=== PATIENT | male | born 1955 | race Caucasian/White ===

== ENCOUNTER 2024-06-16 10:46 | Outpatient (CLI) | payer MEDICARE, SELFPAY ==
[2024-06-19 02:15] LABS: Pancreatic Elastase, Fecal 516 (>200)
== END 2024-06-16 23:59 | disposition home or self-care (01) ==
LOC: LAB 10:47
PROVIDERS: PCP Nurse Practitioner Family; Visit Provider Internal Medicine Gastroenterology
DX: R14.0 Abdominal distension (gaseous) (principal); R15.2 Fecal urgency; R19.7 Diarrhea, unspecified
CPT/HCPCS: 82656

== ENCOUNTER 2024-07-03 12:44 | Day surgery (SDC) | payer MEDICARE, SELFPAY ==
[2024-07-03 13:10] VITALS: BMI 27.4
[2024-07-03] MEDS: LACTATED RINGERS 1000ML 1,000 ML 50 ML IV (13:13)
[2024-07-03 13:16] VITALS: BP 148/68; PULSE 67; RESP 20; TEMP 36.4; O2SAT 97
--- NOTE | 2024-07-03 13:48 | P.PNANES_ITS ---
[facility] Disclaimer: The information contained in this section may have been updated after the patient was seen, as this information can be updated by other users. Medical History Gassiness Night terrors, adult Asthma Surgical History H/O: knee surgery History of appendectomy Hx of cholecystectomy History of carpal tunnel surgery H/O wrist surgery History of prostate surgery Family History Sister Multiple myeloma Social History Smoking Status: Never smoker alcohol intake: former substance use type: denies use current occupational status: retired Travel in the last 8 weeks: Inside the [place] Have you lived/traveled outside US in past 30 days?: No Contact w/someone who lives/traveled outside US past 30 days?: No Exposure to someone with infectious disease in past 14 days?: No Do you have a fever (greater than 100.4 F or 38 C)?: No Have you tested positive for COVID-19: No Exposed to someone with COVID-19 in past 14 days?: No Do you have a sore throat?: No Do you have a cough?: No Do you have any weakness?: No Do you have any diarrhea?: No Are you experiencing any unusual bleeding?: No Do you have any muscle aches/pain?: No Do you have any abdominal pain?: No Are you experiencing loss of taste or smell?: No [facility] Anesthesia Checklist Patient Identification Patient Identification: Arm Band Structural Data Admitted From: Home Planned Operative Procedure/s: Colonoscopy Consent for Planned Operative Procedure(s) Verified: Yes Verified Documents: Surgical Consent and History and Physical NPO Status Verified Time NPO: 11:00 (Finished prep) Additional verifications Anesthesia Reactions: No Hx Blood Transfusions: No Blood Transfusion Reaction: No Airway Assessment Mallampati Score:: Class II C-Spine Mobility Assessed: Yes TMJ Mobility Assessed: Yes Dentition: Good Dentition Neurological Assessment Level of Consciousness: Awake, Alert and Appropriate Anesthesia Plan Anesthesia Risk discussed: Yes Anesthesia Plan: Verified ASA Class: II Anesthesia Type: MAC
--- NOTE | 2024-07-03 14:23 | EXP.HP ---
History of Present Illness *Admission Date: 07/03/24 *Reason for visit:: Diarrhea, abdominal cramps and bowel irregularity *History of present illness: Mr. Díaz is a 69-year-old gentleman who is here to reestablish GI care. The patient was last seen in our [place] office in December 2020 and at that time he had both fecal and urinary incontinence. He does have a prior history of cholecystectomy. His last colonoscopy was in April 2018 and he had a single polyp (mucosal prolapse polyp) which was removed. The patient returns today with alternating diarrhea with constipation. He also has noted some dark and bright red blood with his bowel movements. He has had moderate gassiness and bloating. He did have prostate reduction surgery 2 months ago and most of his symptoms have recurred subsequently. Prior to surgery, he did have routine abdominal films that showed high fecal burden/fecal retention. The patient does state that he will go 2 to 3 weeks with constipation and then develop significant gassiness, bloating and diarrhea with urgency. The patient did have his colonoscopy in April 2020 and at that time had grade 2 internal hemorrhoids that were banded x 3. He does feel that this is much like his prior hemorrhoidal bleeding. It was suggested that he begin cholestyramine because of his diarrhea and prior cholecystectomy. Since his prostate reduction surgery he has had lower extremity weakness and muscle issues and he is just now beginning to walk again. He has been told that he has pelvic floor dysfunction. He has noted some intermittent right lower quadrant abdominal pain especially when he becomes obstipated. The patient has had routine colonoscopies. He had a colonoscopy in February 2003 and had a single tubular adenoma removed. His colonoscopy in 2009 was normal. His colonoscopy in 2018 revealed only a mucosal prolapse polyp. [facility] Disclaimer: The information contained in this section may have been updated after the patient was seen, as this information can be updated by other users. Medical History Gassiness Night terrors, adult Asthma Surgical History H/O: knee surgery History of appendectomy Hx of cholecystectomy History of carpal tunnel surgery H/O wrist surgery History of prostate surgery Family History Sister Multiple myeloma Social History Smoking Status: Never smoker alcohol intake: former substance use type: denies use current occupational status: retired Travel in the last 8 weeks: Inside the [place] Have you lived/traveled outside [place] in past 30 days?: No Contact w/someone who lives/traveled outside [place] past 30 days?: No Exposure to someone with infectious disease in past 14 days?: No Do you have a fever (greater than 100.4 F or 38 C)?: No Have you tested positive for COVID-19: No Exposed to someone with COVID-19 in past 14 days?: No Do you have a sore throat?: No Do you have a cough?: No Do you have any weakness?: No Do you have any diarrhea?: No Are you experiencing any unusual bleeding?: No Do you have any muscle aches/pain?: No Do you have any abdominal pain?: No Are you experiencing loss of taste or smell?: No Other Medical History Have you received the Pneumonia Vaccine: Yes Review of Systems Review of Systems Review of systems (narrative): Negative *Cardiovascular Comments: Negative *Gastrointestinal Comments: Negative *Genitourinary Comments: Negative *Musculoskeletal Comments: Negative *Neurologic Comments: Negative Meds Home Medications and Allergies Home Medications ?Medication ?Instructions ?Recorded ?Confirmed ?Type albuterol sulfate 90 mcg/actuation 2 puff inhalation ONCE 06/13/24 07/03/24 History aerosol inhaler fluticasone 250 mcg-salmeterol 50 250 ea inhalation NEEDED PRN 06/13/24 07/03/24 History mcg/dose blistr powdr for Breathing Problems inhalation levocetirizine 5 mg tablet 5 mg PO DAILY 06/13/24 07/03/24 History montelukast 10 mg tablet 10 mg PO DAILY 06/13/24 07/03/24 History New Prescriptions to Start Prescriptions: Allergies Allergy/AdvReac Type Severity Reaction Status Date / Time No Known Allergies Allergy Verified 07/03/24 13:16 Exam Data for Last 24 hours Vital signs and Labs for Last 24 Hours: Temp Pulse Resp BP Pulse Ox O2 Del Method 97.5 F L 67 20 148/68 H 97 Room Air 07/03/24 13:16 07/03/24 13:16 07/03/24 13:16 07/03/24 13:16 07/03/24 13:16 07/03/24 13:16 I & O for Last 24 hours: Intake & Output 06/30/24 07/01/24 07/02/24 07/03/24 23:59 23:59 23:59 23:59 Weight 197 lb *Routine HEENT Exam Head: Present normocephalic Eye: Present EOMI and PERRL ENT: Present mucous membranes moist *Routine Neck Exam Neck: Present supple *Routine Respiratory Exam Respiratory: Present CTA bilaterally *Routine Cardiovascular Exam Cardiovascular: Present RRR *Routine Abdominal Exam Abdominal: Present soft and normoactive bowel sounds; Absent tenderness *Routine Rectal Exam Rectal:: deferred *Routine Genitalia Exam Genitalia:: deferred *Routine Extremities Exam Extremities: Absent cyanosis, clubbing or edema *Routine Skin Exam Skin: Present warm; Absent rash *Routine Neurological Exam Neurological: Present alert and oriented X3 Assessment and Plan *Assessment and plan (1) Diarrhea: Status: Acute Category: Medical Code(s): R19.7 - Diarrhea, unspecified (2) Fecal urgency: Status: Acute Category: Medical Code(s): R15.2 - Fecal urgency (3) Bright red rectal bleeding: Status: Acute Category: Medical Code(s): K62.5 - Hemorrhage of anus and rectum (4) Right lower quadrant abdominal pain: Status: Acute Category: Medical Code(s): R10.31 - Right lower quadrant pain (5) Gassiness: Status: Acute Category: Medical Code(s): R14.0 - Abdominal distension (gaseous) (6) Bloating: Status: Acute Category: Medical Code(s): R14.0 - Abdominal distension (gaseous) Plan A/P: 1. Diarrhea with fecal urgency, right lower quadrant pain, gassiness, bloating and rectal bleeding is the preprocedural diagnosis. The patient will be anesthetized/sedated using MAC sedation. The patient has been seen and examined. Cardiac and lung assessment prior to the examination is stable. Proceed with planned diagnostic colonoscopy.
[2024-07-03 14:29] VITALS: O2SAT 99
--- NOTE | 2024-07-03 14:34 | HMH.PROCNOTE ---
[facility] Procedure Note Date: 07/03/24 Time: 14:54 Procedure Note:: Colonoscopy Procedure Report: Colonoscopy with cold snare polypectomy Endoscopist: Kike Floyd II, MD Referring physician: Gail Sawant Date of Procedure: July 03, 2024 Equipment: Olympus 190 variable stiffness pediatric colonoscope Sedation: MAC sedation Indication: Mr. Díaz is a 69-year-old gentleman who is here for diagnostic colonoscopy. The patient was last seen in our [place] office in December 2020 and at that time he had both fecal and urinary incontinence. He does have a prior history of cholecystectomy. His last colonoscopy was in April 2018 and he had a single polyp (mucosal prolapse polyp) which was removed. The patient returned recently with alternating diarrhea with constipation. He also has noted some dark and bright red blood with his bowel movements. He has had moderate gassiness and bloating. He did have prostate reduction surgery 2 months ago and most of his symptoms have recurred subsequently. Prior to surgery, he did have routine abdominal films that showed high fecal burden/fecal retention. The patient does state that he will go 2 to 3 weeks with constipation and then develop significant gassiness, bloating and diarrhea with urgency. The patient did have his colonoscopy in April 2020 and at that time had grade 2 internal hemorrhoids that were banded x 3. He does feel that this is much like his prior hemorrhoidal bleeding. It was suggested that he begin cholestyramine because of his diarrhea and prior cholecystectomy. Since his prostate reduction surgery he has had lower extremity weakness and muscle issues and he is just now beginning to walk again. He has been told that he has pelvic floor dysfunction. He has noted some intermittent right lower quadrant abdominal pain especially when he becomes obstipated. The patient has had routine colonoscopies. He had a colonoscopy in February 2003 and had a single tubular adenoma removed. His colonoscopy in 2009 was normal. His colonoscopy in 2018 revealed only a mucosal prolapse polyp. In the office in late May, I did recommend that he resume the fiber bowel regimen (MiraLAX plus Konsyl mixed together). The patient is doing much better since reinitiation. Procedure: Prior to the procedure, a history and physical exam was performed, and patient's medications and allergies were reviewed. The risks, benefits and alternatives of the sedation and procedure were discussed with the patient. All questions were answered and informed consent was obtained. The patient was brought to the procedure room. Patient identification and proposed procedure were verified by the physician and the nurse. The patient was placed in a left lateral decubitus position and the scope was passed under direct vision. Throughout the procedure, the patient's blood pressure, pulse, and oxygen saturations were monitored continuously. The colonoscopy was accomplished without difficulty. The patient tolerated the procedure well. Findings: On digital rectal examination there was normal rectal tone. There were no external hemorrhoids. The prostate was moderately firm but symmetric without nodules. The colonoscope was introduced through the anal canal to the rectum and advanced to the cecum. The ileocecal valve and appendiceal orifice were identified. The scope was advanced a short distance into the ileum which appeared grossly normal. The scope was then withdrawn into the colon. There were 3 diminutive polyps (cecum x 1 (3 mm), ascending x 1 (4 mm) and sigmoid x 1 (5 mm)). All of these were removed via cold snare polypectomy. The remaining cecum, ascending and transverse colon and mucosa were grossly normal. There were scattered diverticuli throughout the descending and sigmoid colon (LEFT colon). The rectum itself was normal. Upon retroflexion within the rectum there were grade 2 internal hemorrhoids. The preparation was excellent throughout with [place] Preparation Score of 9. The cecal time was 12 minutes. Impression: 1. Diminutive colonic polyps x 3 2. Left-sided diverticulosis 3. Grade 2 internal hemorrhoids Plan: I will follow-up the polyp histology and recommend repeat surveillance colonoscopy again in 5 years based upon the pathology. I would continue the fiber bowel regimen (combined MiraLAX plus Konsyl) on a routine and daily basis.
[2024-07-03 15:00] VITALS: BP 96/58; PULSE 59; RESP 16; TEMP 36.9; O2SAT 93
[2024-07-03 15:10] VITALS: BP 99/60; PULSE 59; RESP 16; O2SAT 96
[2024-07-03 15:20] VITALS: BP 111/65; PULSE 60; RESP 16; O2SAT 96
[2024-07-03 15:30] VITALS: BP 111/70; PULSE 61; RESP 16; O2SAT 97
== END 2024-07-03 15:43 | disposition home or self-care (01) ==
PROVIDERS: PCP Nurse Practitioner Family; Visit Provider Internal Medicine Gastroenterology
PROC: 0DJD8ZZ Inspection of Lower Intestinal Tract, Via Natural or Artificial Opening Endoscopic (ICD-10-PCS; CPT 45378; principal; 2024-07-03 14:30)
DX: K63.5 Polyp of colon (principal); K57.30 Diverticulosis of large intestine without perforation or abscess without bleeding; K64.1 Second degree hemorrhoids; R19.7 Diarrhea, unspecified; R15.2 Fecal urgency; K62.5 Hemorrhage of anus and rectum; R10.31 Right lower quadrant pain; R14.0 Abdominal distension (gaseous)
CPT/HCPCS: 45385; J7120